=== PATIENT | male | born 1970 ===

== ENCOUNTER 2024-05-26 12:17 | Emergency (ER) | payer BC ==
[2024-05-26 12:36] VITALS: RESP 16
--- NOTE | 2024-05-26 13:19 | ED ---
Extremity Problem HPI - General Chief complaint: Skin/Abscess/Foreign Body Stated complaint: L Foot Pain Time Seen by Provider: 05/26/24 12:37 Source: patient, family, RN notes reviewed Mode of arrival: ambulatory Limitations: no limitations - History of Present Illness Initial comments: This is a 54-year-old male who presents to the emergency department for left foot pain, swelling, and redness. States that this started a couple of days ago. It is localized to the foot and the bottom half of the left lower leg. Pain is worse when he tries to walk or move the leg. States that he has also had fevers at home. Denies any injuries but states that he had an ingrown toenail to the left great toe. Denies any history of infections or blood clots of the left leg. MD Complaint: extremity pain, extremity swelling - Related Data Previous Rx's Medication Instructions Recorded Cephalexin [Keflex] 500 mg PO Q6HR 7 Days #28 cap 05/26/24 Naproxen Sodium 550 mg PO BID PRN #30 tablet 05/26/24 Sulfamethox-Tmp 800-160Mg [Bactrim 1 tab PO Q12HR 7 Days #14 tab 05/26/24 DS 800-160 mg] Allergies Allergy/AdvReac Type Severity Reaction Status Date / Time No Known Allergies Allergy Verified 05/26/24 12:36 Review of Systems ROS Statement: Those systems with pertinent positive or pertinent negative responses have been documented in the HPI. ROS Other: All systems not noted in ROS Statement are negative. Past Medical History Past Medical History: Hyperlipidemia, Hypertension Past Surgical History: No Surgical Hx Reported Past Psychological History: No Psychological Hx Reported Smoking Status: Current every day smoker General Exam Limitations: no limitations General appearance: alert, in no apparent distress Head exam: Present: atraumatic, normocephalic, normal inspection Respiratory exam: Present: normal lung sounds bilaterally. Absent: respiratory distress, wheezes, rales, rhonchi, stridor Cardiovascular Exam: Present: regular rate, normal rhythm, normal heart sounds. Absent: systolic murmur, diastolic murmur, rubs, gallop, clicks Extremities exam: Present: other (Erythema, swelling, tenderness, and warmth to the left lower extremity beginning at the mid tib-fib and spreading distally. 2+ DP and PT pulses. Full range of motion.) Neurological exam: Present: alert, oriented X3, CN II-XII intact Psychiatric exam: Present: normal affect, normal mood Course Vital Signs 05/26/24 05/26/24 05/26/24 12:33 14:38 16:20 Temperature 97.8 F 99.1 F Pulse Rate 80 64 63 Respiratory 16 16 16 Rate Blood Pressure 144/82 142/84 154/89 O2 Sat by Pulse 98 98 99 Oximetry Medical Decision Making - Medical Decision Making This is a 54-year-old male who presents to the emergency department for left leg pain and swelling. Was pt. sent in by a medical professional or institution? @ -No Did you speak to anyone other than the patient for history? @ -No Did you review nursing and triage notes? @ -Yes, and I agree, it is accurate with regards to the patient's symptoms. Were old charts reviewed? @ -No Differential Diagnosis? @ -Differential Musculoskeletal: Muscular strain, contusion, ligament sprain, fracture, arthritis, septic arthritis, bursitis, cellulitis, muscle spasm, nerve compression, DVT, arterial occlusion, herpes zoster, electrolyte abnormality, tumor.... This is not meant to be in all inclusive list EKG interpreted by me (3pts min.)? @ -Not obtained X-rays interpreted by me (1pt min.)? @ -X-ray of the left foot and left tib-fib obtained. My interpretation identifies no evidence of subcutaneous gas formation. CT interpreted by me (1pt min.)? @ -Not obtained U/S interpreted by me (1pt. min.)? @ -Duplex ultrasound of the left lower extremity obtained. My interpretation identifies no evidence of a DVT. What testing was considered but not performed? (CT, X-rays, U/S, labs)? Why? @ -None What meds were considered but not given? Why? @ -None Did you discuss the management of the patient with other professionals? @ -No Did you reconcile home meds? @ -No Was smoking cessation discussed for >3mins.? @ -No Was critical care preformed (if so, how long)? @ -No Were there social determinants of health that impacted care today? How? (Homelessness, low income, unemployed, alcoholism, drug addiction, transportation, low edu. Level, literacy, decrease access to med. care, halfway, rehab)? @ -No Was there de-escalation of care discussed even if they declined? (Discuss DNR or withdrawal of care, Hospice)? @ -No What co-morbidities impacted this encounter? (DM, HTN, Smoking, COPD, CAD, Cancer, CVA, Hep., AIDS, mental health diagnosis, sleep apnea, morbid obesity)? @ -None Was patient admitted / discharged? @ -Discharged. Lab work demonstrates leukocytosis and an elevated CRP. X-ray of the left foot and tib-fib obtained demonstrating soft tissue swelling without any evidence of osseous erosion or subcutaneous gas formation. Duplex ultrasound of the left lower extremity obtained as well revealing no evidence of a DVT. Lymphadenopathy was noted. Patient was not in any significant distress pain wilson and was comfortable discharge home. Prescription for Bactrim, Keflex, and naproxen provided. He was given a dose of ceftriaxone prior to discharge as well. We did discuss strict return parameters and close follow-up with his PCP. Undiagnosed new problem with uncertain prognosis? @ -None Drug Therapy requiring intensive monitoring for toxicity (Heparin, Nitro, Insulin, Cardizem)? @ -None Were any procedures done? @ -None Diagnosis/symptom? @ -Left lower extremity cellulitis Acute, or Chronic, or Acute on Chronic? @ -Acute Uncomplicated (without systemic symptoms) or Complicated (systemic symptoms)? @ -Uncomplicated Side effects of treatment? @ -None Exacerbation, Progression, or Severe Exacerbation] @ -Not applicable Poses a threat to life or bodily function? @ -Unlikely Return precautions reviewed in depth, the patient is instructed to return to the emergency department with any new, worsening, or concerning symptoms. Patient verbalized understanding. This case was discussed in detail with the attending ED physician, Dr. Camacho. Presentation, findings, and treatment plan discussed in detail as well. - Lab Data Result diagrams: 05/26/24 13:05 05/26/24 13:05 Lab Results 05/26/24 05/26/24 05/26/24 Range/Units 13:05 13:05 13:05 WBC 13.6 H (3.8-10.6) k/uL RBC 3.91 L (4.30-5.90) m/uL Hgb 12.4 L (13.0-17.5) gm/dL Hct 35.7 L (39.0-53.0) % MCV 91.3 (80.0-100.0) fL MCH 31.6 (25.0-35.0) pg MCHC 34.6 (31.0-37.0) g/dL RDW 13.0 (11.5-15.5) % Plt Count 170 (150-450) k/uL MPV 9.1 Neutrophils % 73 % Lymphocytes % 17 % Monocytes % 6 % Eosinophils % 1 % Basophils % 0 % Neutrophils # 9.9 H (1.3-7.7) k/uL Lymphocytes # 2.3 (1.0-4.8) k/uL Monocytes # 0.8 (0-1.0) k/uL Eosinophils # 0.2 (0-0.7) k/uL Basophils # 0.0 (0-0.2) k/uL ESR 37 H (0-20) mm/Hr Sodium 141 (137-145) mmol/L Potassium 3.6 (3.5-5.1) mmol/L Chloride 111 H (98-107) mmol/L Carbon Dioxide 23 (22-30) mmol/L Anion Gap 7 mmol/L BUN 11 (9-20) mg/dL Creatinine 0.63 L (0.66-1.25) mg/dL Est GFR (CKD-EPI)AfAm >90 (>60 ml/min/1.73 sqM) Est GFR (CKD-EPI)NonAf >90 (>60 ml/min/1.73 sqM) Glucose 108 H (74-99) mg/dL Plasma Lactic Acid Lorenzo 0.7 (0.7-2.0) mmol/L Calcium 8.9 (8.4-10.2) mg/dL Total Bilirubin 0.8 (0.2-1.3) mg/dL AST 29 (17-59) U/L ALT 49 (4-49) U/L Alkaline Phosphatase 58 (38-126) U/L C-Reactive Protein 18.3 H (<1.0) mg/dL Total Protein 6.3 (6.3-8.2) g/dL Albumin 3.5 (3.5-5.0) g/dL - Radiology Data Radiology results: report reviewed, image reviewed Disposition Clinical Impression: Cellulitis of left leg Disposition: HOME SELF-CARE Instructions (If sedation given, give patient instructions): Cellulitis (ED) Additional Instructions: Return to the emergency department with any new, worsening, or concerning symptoms. Take both antibiotics as prescribed for 7 days. You can take the naproxen with Tylenol as needed for pain and fevers. Follow up with your primary care provider in 1-2 days. Prescriptions: Sulfamethox-Tmp 800-160Mg [Bactrim DS 800-160 mg] 1 tab PO Q12HR 7 Days #14 tab Cephalexin [Keflex] 500 mg PO Q6HR 7 Days #28 cap Naproxen Sodium 550 mg PO BID PRN #30 tablet PRN Reason: Pain Is patient prescribed a controlled substance at d/c from ED?: No Referrals: None,Stated [Primary Care Provider] - 1-2 days Time of Disposition: 15:48
[2024-05-26 13:21] LABS: Basophils % (A) 0 %; Eosinophils # (A) 0.2 k/uL (0-0.7); Eosinophils % (A) 1 %; HCT 35.7 % (39.0-53.0); HGB 12.4 gm/dL (13.0-17.5); Lymphocytes # (A) 2.3 k/uL (1.0-4.8); Lymphocytes % (A) 17 %; MCH 31.6 pg (25.0-35.0); MCHC 34.6 g/dL (31.0-37.0); MCV 91.3 fL (80.0-100.0); Mean Platelet Volume 9.1; Monocytes # (A) 0.8 k/uL (0-1.0); Monocytes % (A) 6 %; Neutrophils # (A) 9.9 k/uL (1.3-7.7); Neutrophils % (A) 73 %; Platelet Count 170 k/uL (150-450); RBC 3.91 m/uL (4.30-5.90); WBC 13.6 k/uL (3.8-10.6)
[2024-05-26 13:35] LABS: ALT 49 U/L (4-49); AST 29 U/L (17-59); African American GFR (CKD) >90 (>60 ml/min/1.73 sqM); Albumin 3.5 g/dL (3.5-5.0); Alkaline Phosphatase 58 U/L (38-126); Anion Gap 7 mmol/L; Blood Urea Nitrogen 11 mg/dL (9-20); Calcium 8.9 mg/dL (8.4-10.2); Carbon Dioxide 23 mmol/L (22-30); Chloride 111 mmol/L (98-107); Glucose 108 mg/dL (74-99); Non-African American GFR(CKD) >90 (>60 ml/min/1.73 sqM); Potassium 3.6 mmol/L (3.5-5.1); Sodium 141 mmol/L (137-145); Total Bilirubin 0.8 mg/dL (0.2-1.3); Total Protein 6.3 g/dL (6.3-8.2)
--- NOTE | 2024-05-26 14:20 | XR ---
EXAMINATION TYPE: XR foot complete LT DATE OF EXAM: 05/26/2024 2:10 PM CLINICAL INDICATION:Male, 54 years old with history of Pain and swelling; [facility] COMPARISON: None TECHNIQUE: XR foot complete LT examined in the AP, oblique, and lateral projections. FINDINGS: No evidence of any acute osseous pathology. There is soft tissue swelling over the dorsal foot. Gianni caneal Achilles enthesophyte. Calcaneal plantar spurring is present. Multifocal degeneration change s throughout the joints of the foot with osteophyte formation and joint space narrowing. IMPRESSION: Soft tissue swelling without evidence of acute fracture.
--- NOTE | 2024-05-26 14:46 | US ---
EXAMINATION TYPE: US venous doppler duplex LE LT DATE OF EXAM: 05/26/2024 2:02 PM COMPARISON: NONE CLINICAL INDICATION: Male, 54 years old with history of Pain and swelling; Edema left foot for 3 days SIDE PERFORMED: left TECHNIQUE: The lower extremity deep venous system is examined utilizing real time linear array sonog robin with graded compression, doppler sonography and color-flow sonography. VESSELS IMAGED: Common Femoral Vein Deep Femoral Vein Greater Saphenous Vein * Femoral Vein Popliteal Vein Small Saphenous Vein * Proximal Calf Veins (* superficial vessels) Left Leg: No evidence of DVT. multiple lymph nodes left groin, largest = 2.8 x 1.8 x 3.7cm IMPRESSION: Grayscale, color doppler, spectral doppler imaging performed of the deep veins of the lo wer extremities. There is normal flow, compressibility, vascular waveforms.
--- NOTE | 2024-05-26 14:47 | XR ---
EXAMINATION TYPE: XR tibia fibula LT DATE OF EXAM: 05/26/2024 2:11 PM CLINICAL INDICATION:Male, 54 years old with history of Pain and swelling; [facility] COMPARISON: None TECHNIQUE: XR tibia fibula LT; tibia/fibula was examined in AP and lateral projections. FINDINGS: No evidence of any acute osseous pathology, joint dislocation. There is mild soft tissue sw elling in the leg. Osteophyte formation joint space narrowing of the knee. IMPRESSION: 1. Mild soft tissue swelling, No evidence of acute fracture. 2. Moderate knee osteoarthrosis.
[2024-05-26] MEDS: LIDOCAINE 1% INJ 10MG/ML (20 ML MDV) SQ ONE (15:19)
[2024-05-26 16:06] LABS: C Reactive Protein 18.3 mg/dL (<1.0)
[2024-05-26] MEDS: ACET/COD 300 MG/30 MG STARTER PACK 6 TAB BTL PO STA (16:10)
[2024-05-26] MEDS: cefTRIAXone IN SWFI 1,000 MG/10 ML SYRINGE IVP STA (16:16)
[2024-05-26 16:22] VITALS: BP 154/89; PULSE 63; TEMP 99.1
[2024-05-26 23:19] LABS: Erythrocyte Sedimentation Rate 37 mm/Hr (0-20)
== END 2024-05-26 16:22 | disposition home or self-care (01) ==
LOC: EC 12:17
DX: L03.116 Cellulitis of left lower limb (principal); F17.200 Nicotine dependence, unspecified, uncomplicated
CPT/HCPCS: 36415; 80053; 85652; 83605; 85025; 86140; 73590; 73630; 93971; 99284; 96374; J2001; J0696

== ENCOUNTER 2024-06-04 08:54 | Emergency (ER) | payer BC ==
[2024-06-04 09:09] VITALS: RESP 18
[2024-06-04] MEDS: methylPREDNISolone SOD SUCCI 125 MG/2 ML VIAL IM ONE (09:22)
[2024-06-04] MEDS: diphenhydrAMINE 50 MG CAP PO STA (09:22)
--- NOTE | 2024-06-04 09:39 | ED ---
Skin/Abscess/FB HPI - General Chief complaint: Skin/Abscess/Foreign Body Stated complaint: L foot toe issue Time Seen by Provider: 06/04/24 09:10 Source: patient, RN notes reviewed Mode of arrival: ambulatory Limitations: no limitations - History of Present Illness Initial comments: This is a 54-year-old male who presents to the emergency department for redness and itching to the left foot. Patient was evaluated here on 05/26 for redness and swelling to the left leg. He was treated with antibiotics for cellulitis and states that this improved. He does continue to have some residual swelling around the ankle. States that this improves in the morning and is worse as the day progresses if he stands or walks for long periods of time. He does also have an ingrown toenail and has been soaking his foot in salt soaks. Additionally, yesterday he started to wear a compression stocking for the first time. This morning when he woke up he had red splotching on the left leg with associated itching. Denies any pain associated with this. Wonders if he may have had a reaction to the compression stocking or the salt soaks. MD complaint: rash - Related Data Previous Rx's Medication Instructions Recorded Cephalexin [Keflex] 500 mg PO Q6HR 7 Days #28 cap 05/26/24 Naproxen Sodium 550 mg PO BID PRN #30 tablet 05/26/24 Sulfamethox-Tmp 800-160Mg [Bactrim 1 tab PO Q12HR 7 Days #14 tab 05/26/24 DS 800-160 mg] Triamcinolone 0.5% Cream [Kenalog 1 applic TOPICAL QID PRN #30 gm 06/04/24 0.5% Cream] predniSONE 50 mg PO DAILY 4 Days #4 tablet 06/04/24 Allergies Allergy/AdvReac Type Severity Reaction Status Date / Time No Known Allergies Allergy Verified 06/04/24 09:09 Review of Systems ROS Statement: Those systems with pertinent positive or pertinent negative responses have been documented in the HPI. ROS Other: All systems not noted in ROS Statement are negative. Past Medical History Past Medical History: Hyperlipidemia, Hypertension History of Any Multi-Drug Resistant Organisms: None Reported Past Surgical History: No Surgical Hx Reported Past Psychological History: No Psychological Hx Reported Smoking Status: Current every day smoker, Vaper Past Alcohol Use History: None Reported Past Drug Use History: None Reported General Exam Limitations: no limitations General appearance: alert, in no apparent distress Head exam: Present: atraumatic, normocephalic, normal inspection Respiratory exam: Present: normal lung sounds bilaterally. Absent: respiratory distress, wheezes, rales, rhonchi, stridor Cardiovascular Exam: Present: regular rate, normal rhythm, normal heart sounds. Absent: systolic murmur, diastolic murmur, rubs, gallop, clicks Extremities exam: Present: other (Erythematous blotchy rash suggestive of urticaria to the left lower extremity beginning inferior to the knee and sp reading distally. No tenderness. No warmth. 2+ DP and PT pulses.) Neurological exam: Present: alert, oriented X3, CN II-XII intact Psychiatric exam: Present: normal affect, normal mood Course Vital Signs 06/04/24 06/04/24 09:08 11:03 Temperature 97.7 F 97.9 F Pulse Rate 74 76 Respiratory 18 18 Rate Blood Pressure 155/92 146/82 O2 Sat by Pulse 95 96 Oximetry Medical Decision Making - Medical Decision Making This is a 54-year-old male who presents to the emergency department for a rash to the left lower extremity. Was pt. sent in by a medical professional or institution? @ -No Did you speak to anyone other than the patient for history? @ -No Did you review nursing and triage notes? @ -Yes, and I agree, it is accurate with regards to the patient's symptoms. Were old charts reviewed? @ -No Differential Diagnosis? @ -Differential Rash: Roseola, measles, Lyme disease, erythema multiforme, cellulitis, toxic shock syndrome, Casper Antonio syndrome, Kawasaki disease, otilio mountain spotted fever, contact dermatitis, allergic dermatitis, measles, mumps, rubella, varicella, meningococcal disease, drug reaction, coxsackievirus, This is not meant to be an all-inclusive list. EKG interpreted by me (3pts min.)? @ -Not obtained X-rays interpreted by me (1pt min.)? @ -X-ray of the left ankle obtained. My interpretation identifies no acute fractures. CT interpreted by me (1pt min.)? @ -Not obtained U/S interpreted by me (1pt. min.)? @ -Not obtained What testing was considered but not performed? (CT, X-rays, U/S, labs)? Why? @ -None What meds were considered but not given? Why? @ -None Did you discuss the management of the patient with other professionals? @ -No Did you reconcile home meds? @ -No Was smoking cessation discussed for >3mins.? @ -No Was critical care preformed (if so, how long)? @ -No Were there social determinants of health that impacted care today? How? (Homelessness, low income, unemployed, alcoholism, drug addiction, transportation, low edu. Level, literacy, decrease access to med. care, fpc, rehab)? @ -No Was there de-escalation of care discussed even if they declined? (Discuss DNR or withdrawal of care, Hospice)? @ -No What co-morbidities impacted this encounter? (DM, HTN, Smoking, COPD, CAD, Cancer, CVA, Hep., AIDS, mental health diagnosis, sleep apnea, morbid obesity)? @ -None Was patient admitted / discharged? @ -Discharged. Physical examination was suggestive of a contact dermatitis or other reaction. This was not similar to the cellulitis he had previously. Additionally, this was itchy as opposed to painful. Given the swelling we did obtain an x-ray of the left ankle demonstrating circumferential soft tissue swelling without other acute process. Discussed that swelling is more common after being on the feet for long periods of time, especially if he is still recovering from infection. Solu-Medrol, Benadryl, and triamcinolone cream administered in the emergency department which he did feel helped the itching. Discussed that this may have been from the compression stocking given that it extends up to the area just below the knee where the compression stocking was located. Advised he stop using this. Discussed that he could try an Otoniel wrap instead as well as elevation of the leg. Prescription for prednisone provided to be taken for another couple of days as well as Kenalog cream. Advised continuing with an [id number] antihistamine as well and follow-up with his primary care provider. Undiagnosed new problem with uncertain prognosis? @ -None Drug Therapy requiring intensive monitoring for toxicity (Heparin, Nitro, Insulin, Cardizem)? @ -None Were any procedures done? @ -None Diagnosis/symptom? @ -Left lower extremity dermatitis Acute, or Chronic, or Acute on Chronic? @ -Acute Uncomplicated (without systemic symptoms) or Complicated (systemic symptoms)? @ -Uncomplicated Side effects of treatment? @ -None Exacerbation, Progression, or Severe Exacerbation] @ -Not applicable Poses a threat to life or bodily function? @ -No Return precautions reviewed in depth, the patient is instructed to return to the emergency department with any new, worsening, or concerning symptoms. Patient verbalized understanding. This case was discussed in detail with the attending ED physician, Dr. Camacho. Presentation, findings, and treatment plan discussed in detail as well. - Radiology Data Radiology results: report reviewed, image reviewed Disposition Clinical Impression: Contact dermatitis Disposition: HOME SELF-CARE Instructions (If sedation given, give patient instructions): Contact Dermatitis (ED) Additional Instructions: Return to the emergency department with any new, worsening, or concerning symptoms. Take the prednisone daily for 4 days. Apply the triamcinolone cream to the left leg 4 times daily. Also try taking an [id number] antihistamine such as Benadryl or Zyrtec. Keep the leg elevated. Avoid using the compression stocking. You can try using an Otoniel bandage if you would like. Follow-up with your primary care provider in 1 to 2 days. Prescriptions: Triamcinolone 0.5% Cream [Kenalog 0.5% Cream] 1 applic TOPICAL QID PRN #30 gm PRN Reason: Itching predniSONE 50 mg PO DAILY 4 Days #4 tablet Is patient prescribed a controlled substance at d/c from ED?: No Referrals: Nonstaff,Physician [Primary Care Provider] - 1-2 days Time of Disposition: 10:58
[2024-06-04] MEDS: TRIAMCINOLONE ACET 0.5% CREAM 15 GM TUBE TOPICAL ONE (09:43)
--- NOTE | 2024-06-04 10:39 | XR ---
EXAMINATION TYPE: XR ankle complete 3 views LT DATE OF EXAM: 06/04/2024 Comparison: None Clinical History: 54-year-old male pain and Swelling Findings: Circumferential soft tissue swelling at the ankle. Small posterior and plantar heel spurs. Mild degen erative spurring at the tibiotalar joint. No acute fracture, subluxation, or dislocation is seen. Impression: Circumferential soft tissue swelling. Mild degenerative change at the tibiotalar joint. No acute osse ous abnormality seen.
[2024-06-04 11:05] VITALS: BP 146/82; PULSE 76; TEMP 97.9
== END 2024-06-04 11:03 | disposition home or self-care (01) ==
LOC: EC 08:54
DX: L25.9 Unspecified contact dermatitis, unspecified cause (principal); F17.290 Nicotine dependence, other tobacco product, uncomplicated
CPT/HCPCS: 73610; 99283; 96372; J2919